=== PATIENT | male | born 1950 | race Caucasian/White ===

== ENCOUNTER 2023-02-03 23:08 | Emergency (ER) | payer MEDICARE, OTHER ==
[2023-02-03] MEDS ORDERED: Aspirin Chewable 81 MG TAB ONE (23:42)
[2023-02-03] MEDS ORDERED: Metoclopramide HCl 10 MG/2 ML VIAL ONE (23:52)
[2023-02-03 23:53] LABS: Eosinophils 1 % (0-10); Hematocrit 39.8 % (42.0-52.0); Hemoglobin 12.9 g/dL (14.0-18.0); Lymphocytes 21 % (21-51); MDiff Complete? YES; Mean Corpuscular HGB CONC 32.4 g/dL (32.0-36.0); Mean Corpuscular Volume 95.8 fl (78.0-98.0); Mean Platelet Volume 10.3 fL (7.4-10.4); Monocytes 10 % (0-10); Neutrophil 68 % (42-75); Platelet Adequacy Comment Appears Adequate; Platelet Count 162 10x3/uL (130-400); RBC Distribution Width 12.8 % (11.5-14.5); Red Blood Cell (RBC) Count 4.16 mill/uL (4.70-6.10); White Blood Cell (WBC) Count 9.6 10x3/uL (4.8-10.8)
[2023-02-04 00:03] LABS: ALT (SGPT) 21 U/L (8-55); AST (SGOT) 26 U/L (5-34); Albumin 3.6 g/dL (3.4-4.8); Alkaline Phosphatase 101 U/L (40-110); Anion Gap 13 mmol/L (10-20); BUN (Urea Nitrogen) 15 mg/dL (8.4-25.7); Bilirubin, Total 0.5 mg/dL (0.2-1.2); Calc. Creatinine Clearance 0 mL/min (70-130); Calcium 9.2 mg/dL (7.8-10.44); Carbon Dioxide 32 mmol/L (23-31); Chloride 101 mmol/L (98-107); Estimated GFR 76; Globulin 2.4 g/dL (2.4-3.5); Glucose 117 mg/dL (80-115); Potassium 3.8 mmol/L (3.5-5.1); Sodium 142 mmol/L (136-145)
[2023-02-04 00:09] LABS: Troponin I 0.028 ng/mL (< 0.028)
[2023-02-04] MEDS ORDERED: Nitroglycerin 2% Ointment 1 INCH/1 GM Packet ONE (05:50)
[2023-02-04 06:26] LABS: Troponin I 0.016 ng/mL (< 0.028)
[2023-02-04] MEDS ORDERED: Acetaminophen 500 MG TAB ONE (08:12)
[2023-02-04 12:22] LABS: Troponin I Less than 0.010 ng/mL (< 0.028)
[2023-02-04] MEDS ORDERED: Ketorolac Tromethamine 30 MG/ML VIAL ONE (14:01)
== END 2023-02-04 14:18 | disposition home or self-care (01) ==
LOC: MADERS 23:08
DX: I30.9 Acute pericarditis, unspecified (principal); R07.2 Precordial pain; I10 Essential (primary) hypertension; I25.10 Atherosclerotic heart disease of native coronary artery without angina pectoris; Z95.5 Presence of coronary angioplasty implant and graft
CPT/HCPCS: 71045; 80053; 83880; 84484; 85025; 93005; 96374; J1885; J2765